=== PATIENT | female | born 1955 | race Caucasian/White ===

== ENCOUNTER 2022-03-02 15:19 | Observation (INO) | payer MEDICARE, SELFPAY ==
--- NOTE | 2022-03-02 15:15 | CT_ITS ---
FINAL REPORT CLINICAL HISTORY: lisfranc fracture??, fall off back deck FINDINGS: Axial images of the right foot was performed by computed tomography. Sagittal and coronal reformatted images were obtained and reviewed. This study was performed with techniques to keep radiation doses as low as reasonably achievable (ALARA). Individualized dose reduction techniques using automated exposure control or adjustment of mA and/or kV according to the patient's size were employed. Mild degenerative changes are present. There is a transverse fracture at the base of the 5th metatarsal with mild distraction. There is irregularity along the medial talus of uncertain age, favor chronic. There is a small calcification dorsal to the proximal 5th metatarsal of uncertain etiology. Midfoot and forefoot soft tissue edema is identified. IMPRESSION: Transverse fracture at the base of the 5th metatarsal. Small calcification dorsal to the proximal 5th metatarsal of uncertain etiology. Reviewed, Interpreted and Dictated by Garry Gamez III, MD Transcribed by Kylie Burnette Authenticated and [facility]
--- NOTE | 2022-03-02 15:15 | CT_ITS ---
FINAL REPORT CLINICAL HISTORY: lisfranc fracture??, fall off back deck FINDINGS: CT LEFT FOOT WITHOUT CONTRAST Technique: Axial images through the left foot were performed by computed tomography. Sagittal and coronal reconstruction images were performed. This study was performed with techniques to keep radiation doses as low as reasonably achievable (ALARA). Individualized dose reduction techniques using automated exposure control or adjustment of mA and/or kV according to the patient's size were employed. There is a small avulsion fracture of the proximal plantar aspect of the 1st metatarsal. There is a 2nd fracture involving the proximal lateral 1st metatarsal. There is a small fracture of the dorsal aspect of the middle cuneiform. There is a comminuted fracture of the lateral cuneiform with fracture lines extending to the tarsometatarsal joint. There is a fracture of the proximal medial 4th metatarsal. There are chronic calcifications inferior to the medial navicular of uncertain etiology. There is midfoot and forefoot soft tissue edema. IMPRESSION: Multiple midfoot fractures as described. Reviewed, Interpreted and Dictated by Garry Gamez III, MD Transcribed by Kg Tamayo Authenticated and [facility]
--- NOTE | 2022-03-02 15:54 | PC.NURSE ---
Pt arrived to the floor at this time
[2022-03-02 15:55] VITALS: BP 157/88; PULSE 71; RESP 16; TEMP 36.9; O2SAT 93; BMI 38.3
[2022-03-02 16:46] LABS: Basophils # 0.1 K/mm3 (0-0.2); Basophils % 0.9 % (0.1-2.0); Eosinophils # 0.3 K/mm3 (0.0-0.4); Hematocrit 36.9 % (37.0-47.0); Hemoglobin 12.1 g/dL (12.2-16.2); Lymphocytes # 1.7 K/mm3 (0.7-4.5); Lymphocytes % 20.5 % (10-50); Mean Corpuscular HGB Conc 32.7 g/dL (31.8-35.4); Mean Corpuscular Hemoglobin 30.3 pg (27.0-31.2); Mean Corpuscular Volume 92.5 fl (81-99); Mean Platelet Volume 8.6 fl (7.4-10.4); Monocytes # 0.8 K/mm3 (0.1-1.0); Monocytes % 9.8 % (1.7-9.3); Neutrophils # 5.6 K/mm3 (1.8-7.8); Neutrophils % 65.9 % (37.0-80.0); Platelet Count 304 K/mm3 (142-424); Red Blood Count 3.99 M/mm3 (4.20-5.40); White Blood Count 8.5 K/mm3 (4.8-10.8)
[2022-03-02 16:52] LABS: Alanine Aminotransferase 91 U/L (12-78); Albumin Level 3.8 g/dl (3.5-5.0); Albumin/Globulin Ratio 1.2 (1.1-1.8); Alkaline Phosphatase 236 U/L (38-126); Anion Gap 10.4 mEq/L (5-15); Aspartate Amino Transferase 121 U/L (14-36); Bilirubin,Total 0.6 mg/dl (0.2-1.3); Blood Urea Nitrogen 20 mg/dl (7-17); Calcium 9.2 mg/dl (8.4-10.2); Carbon Dioxide 30 mmol/L (22.0-30.0); Chloride 102 mmol/L (98-107); Creatinine Clearance Estimated 75 mL/min (50-200); Estimated Glomerular Filt Rate 45 ml/min (>60); GFR (African American) 54 ML/MIN (>60); Globulin 3.2 g/dL (1.3-3.2); Glucose 123 mg/dl (74-100); Magnesium 1.8 mg/dl (1.6-2.3); Potassium 3.4 mmoL/L (3.5-5.1); Sodium 139 mmol/L (136-145)
[2022-03-02 19:53] VITALS: BP 119/53; PULSE 67; RESP 18; TEMP 36.9; O2SAT 96
--- NOTE | 2022-03-02 21:18 | HMH.HP ---
*Admission Date: 03/02/22 *Chief complaint: bilateral foot pain, fall *History of present illness: Ms. Fountain is a pleasant 67-year-old female who presents to the office today for follow-up from recent ER visit at [facility]. States on Sunday she was stepping off of her porch when she missed the last step. She stumbled, fell hard on her feet, right knee, and scratched her face. Immediately had onset of pain in her feet and felt a pop in the right foot in particular. EMS took her to the emergency room where she was worked up for injury to her feet. Imaging was obtained that at that time she was told showed concern for Lisfranc injury but no fractures. She was sent home with pain medication and no follow-up plan. She has had a significant difficulty walking since being home. Both feet have become more swollen, bruising on the bottoms of both feet. Right foot and ankle swollen. Having to walk on heels to ambulate to the bathroom. Significant dependence on her friend for ADLs. On exam today in the office, she was sent to [facility] again for repeat imaging given the tenderness on exam and swelling in her feet. Radiology called our office informing us that she had a fracture of her right fifth metatarsal. After consulting orthopedics as an outpatient, decision made to admit patient for further imaging, evaluation, and possible surgical intervention. Patient denies any other complaints. No upset stomach, nausea, vomiting, diarrhea, confusion, headache, chest pain or shortness of breath. Tramadol and adequately controlling her pain at home. Only on aspirin, instructed to hold at this time. No other blood thinners. [facility] History I have reviewed the patient's past medical history: Yes Medical History: Reports:: Cancer (skin cancer on nose), Hyperlipidemia Denies:: Diabetes Mellitus Type 1, Diabetes Mellitus Type 2, MRSA *Have you ever received a pneumonia vaccine?: Yes (2020 Prev) *Have you received a flu vaccine this season?: Yes Other Medical History: Reports: Arthritis, Cataracts (Recently had both cataracts removed), Sinus Problems (seasonal allergies) Laterality Cases: Right: Total Hip Replacement, Bilateral: Cataract, Total Knee Replacement Other Surgeries: Yes: Cholecystectomy, Colonoscopy, Colostomy (2013), 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) Amputation: No Fractures: Yes (Both feet currently,) - *Social History Last grade of school completed: Some college Smoking Status: Former smoker Alcohol Intake: current Alcohol Intake Frequency:: a few times a month *Occupational Status:: retired Housing: house Household Members: significant other *Travel in the last 8 weeks: None Family Hx:: Coronary Artery Disease, Hyperlipidemia Review of Systems - Review of Systems Review of systems:: pertinent systems reviewed and negative unless documented below (14 point review of systems performed, pertinent positives and negatives as per HPI) Meds Home Medications Medication Instructions Recorded Confirmed Type Fluoxetine HCl 80 mg PO DAILY 03/02/22 03/02/22 History Montelukast Sodium 10 mg PO HS 03/02/22 03/02/22 History Ofloxacin [Ocuflox 0.3% OPHTH 1 drp OP HS 03/02/22 03/02/22 History drops 5mL] [place]-3 Acid Ethyl Esters 2 gm PO BID 03/02/22 03/02/22 History Oxycodone HCl/Acetaminophen 1 each PO Q6 PRN 03/02/22 03/02/22 History [Oxycodone-Acetaminophen 5-325] Simvastatin 40 mg PO DAILY 03/02/22 03/02/22 History Tramadol HCl [Tramadol 50mg 50 mg PO BID PRN 03/02/22 03/02/22 History Tab] Triamterene/Hydrochlorothiazid 1 each PO AM 03/02/22 03/02/22 History [Triamterene-Hctz 37.5-25 mg Tb] Verapamil HCl [Verapamil ER] 180 mg PO AM 03/02/22 03/02/22 History allopurinoL [Allopurinol 300mg 150 mg PO AM 03/02/22 03/02/22 History tablet] hydrOXYzine HCL [Hydroxyzine HCl] 25 - 50 mg PO HS PRN 03/02/22 03/02/22 History Allergies Allergy/AdvReac Type Severity Reaction Status Date / Time dapto
[2022-03-03 04:00] VITALS: BP 113/54; PULSE 64; RESP 17; TEMP 36.4; O2SAT 96
[2022-03-03 05:00] VITALS: BMI 38.3
--- NOTE | 2022-03-03 05:26 | PC.NURSE ---
PT HAS RESTED WELL THIS SHIFT. LUNG SOUNDS CLEAR, REMAINS ON ROOM AIR AND IS TOLERATING WELL. BOWEL SOUNDS ACTIVE IN ALL 4 QUADS. NO C/O OF N/V/D. NO C/O PAIN UNTIL THIS AM WHEN SHE GOT UP TO THE [facility] BUT STATED SHE DID NOT WANT ANYTHING FOR PAIN AT THIS TIME. NPO FOR ORTHO CONSULT THIS AM. BILATERAL FEET REMAIN SWOLLEN, NON-PITTING +2 AND FEET ARE STILL BRUISED. NO FURTHER COMPLAINTS OR CONCERNS AT THIS TIME.
[2022-03-03 06:24] LABS: MANUAL DIFFERENTIAL MANUAL DIFFERENTIAL (MANUAL DIFF)
[2022-03-03 06:40] LABS: Basophils # 0.1 K/mm3 (0-0.2); Basophils % 1.2 % (0.1-2.0); Chloride 103 mmol/L (98-107); Eosinophils # 0.3 K/mm3 (0.0-0.4); Eosinophils % 4.7 % (0.1-12.0); Hematocrit 37.4 % (37.0-47.0); Hemoglobin 11.7 g/dL (12.2-16.2); Lymphocytes # 1.9 K/mm3 (0.7-4.5); Lymphocytes % 28.7 % (10-50); Mean Corpuscular HGB Conc 31.3 g/dL (31.8-35.4); Mean Corpuscular Hemoglobin 29.3 pg (27.0-31.2); Mean Corpuscular Volume 93.7 fl (81-99); Mean Platelet Volume 8.7 fl (7.4-10.4); Monocytes # 0.7 K/mm3 (0.1-1.0); Monocytes % 10.2 % (1.7-9.3); Neutrophils # 3.6 K/mm3 (1.8-7.8); Neutrophils % 55.2 % (37.0-80.0); Platelet Count 252 K/mm3 (142-424); Red Blood Count 3.99 M/mm3 (4.20-5.40); Red Cell Distribution Width 14.1 % (11.5-17.5); White Blood Count 6.5 K/mm3 (4.8-10.8)
[2022-03-03 06:41] LABS: Potassium 4.2 mmoL/L (3.5-5.1); Sodium 139 mmol/L (136-145)
[2022-03-03 06:43] LABS: Alanine Aminotransferase 69 U/L (12-78); Alkaline Phosphatase 180 U/L (38-126); Anion Gap 9.2 mEq/L (5-15); Aspartate Amino Transferase 78 U/L (14-36); Bilirubin,Total 0.5 mg/dl (0.2-1.3); Blood Urea Nitrogen 28 mg/dl (7-17); Carbon Dioxide 31 mmol/L (22.0-30.0); Creatinine Clearance Estimated 82 mL/min (50-200); Estimated Glomerular Filt Rate 49 ml/min (>60); GFR (African American) 60 ML/MIN (>60)
[2022-03-03 06:44] LABS: Albumin Level 3.8 g/dl (3.5-5.0); Albumin/Globulin Ratio 1.2 (1.1-1.8); Calcium 9.3 mg/dl (8.4-10.2); Globulin 3.1 g/dL (1.3-3.2); Glucose 111 mg/dl (74-100); Total Protein,Serum 6.9 g/dl (6.3-8.2)
--- NOTE | 2022-03-03 07:33 | HMH.ACPN2 ---
Internal Medicine - PN: Subj *Date: 03/03/22 *Time: 08:27 Interval history: Did well overnight. Pain Management current regimen. [place] for the first time in a few nights. Denies any chest pain, shortness of breath, nausea or vomiting. Using bedside commode with assistance, bearing weight on heels. Exam Vital signs and Labs for Last 24 Hours: Temp Pulse Resp BP Pulse Ox 97.5 F L 64 17 113/54 L 96 03/03/22 04:00 03/03/22 04:00 03/03/22 04:00 03/03/22 04:00 03/03/22 04:00 Laboratory Results - last 24 hr 03/02/22 16:20: WBC 8.5, RBC 3.99 L, Hgb 12.1 L, Hct 36.9 L, MCV 92.5, MCH 30.3, MCHC 32.7, RDW 14.0, Plt Count 304, MPV 8.6, Neut % (Auto) 65.9, Lymph % (Auto) 20.5, [place] % (Auto) 9.8 H, Eos % (Auto) 3.0, Baso % (Auto) 0.9, Neut # (Auto) 5.6, Lymph # (Auto) 1.7, [place] # (Auto) 0.8, Eos # (Auto) 0.3, Baso # (Auto) 0.1 03/02/22 16:20: Sodium 139, Potassium 3.4 L, Chloride 102, Carbon Dioxide 30, Anion Gap 10.4, BUN 20 H, Creatinine 1.20 H, Estimated Creat Clear 75, Estimated GFR 45 L, Est GFR ( Amer) 54 L, Glucose 123 H, Calcium 9.2, Magnesium 1.8, Total Bilirubin 0.6, AST 121 H, ALT 91 H, Alkaline Phosphatase 236 H, Total Protein 7.0, Albumin 3.8, Globulin 3.2, Albumin/Globulin Ratio 1.2 03/03/22 05:50: WBC 6.5, RBC 3.99 L, Hgb 11.7 L, Hct 37.4, MCV 93.7, MCH 29.3, MCHC 31.3 L, RDW 14.1, Plt Count 252, MPV 8.7, Neut % (Auto) 55.2, Lymph % (Auto) 28.7, [place] % (Auto) 10.2 H, Eos % (Auto) 4.7, Baso % (Auto) 1.2, Neut # (Auto) 3.6, Lymph # (Auto) 1.9, [place] # (Auto) 0.7, Eos # (Auto) 0.3, Baso # (Auto) 0.1 03/03/22 05:50: Sodium 139, Potassium 4.2 D, Chloride 103, Carbon Dioxide 31 H, Anion Gap 9.2, BUN 28 H D, Creatinine 1.10 H, Estimated Creat Clear 82, Estimated GFR 49 L, Est GFR ( Amer) 60, Glucose 111 H, Calcium 9.3, Magnesium 2.0 D, Total Bilirubin 0.5, AST 78 H D, ALT 69, Alkaline Phosphatase 180 H, Total Protein 6.9, Albumin 3.8, Globulin 3.1, Albumin/Globulin Ratio 1.2 I & O for Last 24 hours: Intake & Output 02/28/22 03/01/22 03/02/22 03/03/22 23:59 23:59 23:59 23:59 Intake Total 360 / 360 Output Total 500 / 500 Balance 360 / 360 -500 / -500 Weight 106.169 kg 105.715 kg Microbiology Reports for the Last 24 Hours: Microbiology 03/02/22 16:20 Nasopharyngeal Coronavirus COVID-19 PCR - Final Narrative: - Constitutional no acute distress, obese - *Routine HEENT Exam Head: Present: normocephalic Eye: Present: EOMI, PERRL ENT: Present: mucous membranes moist - *Routine Neck Exam Present: supple. Absent: lymphadenopathy - *Routine Respiratory Exam Present: CTA bilaterally - *Routine Cardiovascular Exam Present: RRR - *Routine Abdominal Exam Present: soft, normoactive bowel sounds. Absent: tenderness - *Routine Extremities Exam Present: edema (in feet, right > left). NO cyanosis, clubbing; interval improvement in foot edema with elevation. Bilateral foot pain. bruising on plantar surfaces bilaterally. Right ankle and lateral foot exquisitely tender with minimal palpation. left foot TTP through mid foot. - *Routine Skin Exam Present: warm. No rash, abrasion of right knee - *Routine Neurological Exam Present: alert, oriented X3 Assessment and Plan (1) Fracture of 5th metatarsal Status: Acute Qualifiers: Fracture type: closed Category: Medical Code(s): S92.353A - Displaced fracture of fifth metatarsal bone, unspecified foot, initial encounter for closed fracture (2) Class 2 obesity Status: Chronic Category: Medical Code(s): E66.9 - Obesity, unspecified (3) Foot fracture, left Status: Acute Qualifiers: Fracture type: closed Category: Medical Code(s): S92.902A - Unspecified fracture of left foot, initial encounter for closed fracture (4) Essential hypertension Status: Chronic Category: Medical Code(s): I10 - Essential (primary) hypertension (5) Depression Status: Chronic Category: Medical Code(s)
[2022-03-03 07:34] LABS: Lymphocytes % 25 % (10-50); Monocytes % 7 % (2-9); Neutrophils % 68 % (42-76); Platelet Estimate Normal; RBC Morphology Normal; Total Cells Counted 100
--- NOTE | 2022-03-03 07:38 | P.CONPHA_ITS ---
[facility] Pharmacy VTE Monitoring - Patient Demographics Admission date: 03/03/22 Report Date: 03/03/22 Time: 07:38 Allergies/Adverse Reactions: Patient Allergies daptomycin Allergy (Verified 03/02/22 16:02) Height: 1.66 m Weight: 105.715 kg Patient Problems: Current Active Problems Class 2 obesity (Chronic) Fracture of 5th metatarsal (Acute) Foot fracture, left (Acute) Essential hypertension (Chronic) Depression (Chronic) IgA nephropathy (Chronic) CKD (chronic kidney disease) (Chronic) - VTE Risk Labs: VTE Related Lab Results Hgb 11.7 g/dL (12.2-16.2) L 03/03/22 05:50 Hct 37.4 % (37.0-47.0) 03/03/22 05:50 Plt Count 252 K/mm3 (142-424) 03/03/22 05:50 BUN 28 mg/dl (7-17) H D 03/03/22 05:50 Creatinine 1.10 mg/dl (0.52-1.04) H 03/03/22 05:50 Estimated Creat Clear 82 mL/min (50-200) 03/03/22 05:50 Was VTE Risk Assessment Performed: Yes VTE Score: 6 VTE Risk Level: Moderate Risk Clinical Trial Participant: No - Prophylaxis VTE Prophylaxis Ordered?: Yes Types of VTE Prophylaxis: TEDS Knee High, Pharmacological Pharmacologic Type: Enoxaparin
[2022-03-03 08:00] VITALS: BP 124/75; PULSE 67; RESP 16; TEMP 36.8; O2SAT 96
--- NOTE | 2022-03-03 11:14 | MR_ITS ---
FINAL REPORT CLINICAL HISTORY: FALL RIGHT FOOT PAIN COMPARISON: CT from the previous day FINDINGS: Multiplanar MR imaging of the right foot was performed without contrast. There is a transverse fracture through the base of the 5th metatarsal without significant bone marrow edema that may be subacute. There is a nondisplaced fracture of the distal talus with mild bone marrow edema. There are mild degenerative changes. There is posterior tibial and peroneus longus tenosynovitis. No ligamentous injury is identified, specifically the Lisfranc ligament is intact. The musculature is intact. The plantar aponeurosis is intact. There is forefoot soft tissue edema. IMPRESSION: Fracture through the base of the 5th metatarsal may be subacute. Nondisplaced fracture of the distal talus with mild bone marrow edema. Mild degenerative change. Intact Lisfranc ligament. Posterior tibial and peroneus longus tenosynovitis. Reviewed, Interpreted and Dictated by Garry Gamez III, MD Transcribed by Kg Tamayo Authenticated and [facility]
--- NOTE | 2022-03-03 11:15 | MR_ITS ---
FINAL REPORT CLINICAL HISTORY: FALL FROM PORCH. BILATERAL FX'S. COMPARISON: CT from the previous day FINDINGS: Multiplanar MR imaging of the left foot was performed without contrast. There are mild degenerative changes. There are areas of mild bone marrow edema in the midfoot. The fractures seen on the recent CT are not well demonstrated. There appears to be a fracture of the lateral cuneiform. The flexor and extensor tendons are intact. There is thinning of the Lisfranc ligament with adjacent fluid on series 4, image 21 felt to represent a partial tear. There is widespread forefoot and midfoot soft tissue edema or hemorrhage. The musculature is intact. There is posterior plantar fasciitis. There are tibiotalar and subtalar joint effusions. IMPRESSION: Thinning of the Lisfranc ligament with adjacent fluid felt to represent partial tear. Fractures on prior CT not well demonstrated. There appears to be a fracture of the lateral cuneiform. Posterior plantar fasciitis. Widespread forefoot and midfoot soft tissue edema or hemorrhage. Tibiotalar and subtalar joint effusions. Reviewed, Interpreted and Dictated by Garry Gamez III, MD Transcribed by Kg Tamayo Authenticated and [facility]
--- NOTE | 2022-03-03 11:21 | CARE MANAGER ---
Addendum entered by Krystina Zhou 03/07/22 07:38: COVID swab is not needed prior to discharge per Rigoberto jensen/ [place]. Addendum entered by Krystina Zhou 03/06/22 14:54: Per Rigoberto this patient can be admitted to [facility] level of care tomorrow. Patient will require a COVID swab prior to discharge. Addendum entered by Krystina Zhou 03/06/22 08:30: Updated patient information has been faxed to Rigoberto. Addendum entered by Osiris Peralta RN 03/03/22 16:12: Rigoberto flores will start precert on Sunday Original Note: Patient will need rehab after surgery and prefers [facility]. Information sent to Rigoberto there. SINGH Fernandez
[2022-03-03 11:33] VITALS: BMI 38.1
--- NOTE | 2022-03-03 14:31 | PC.NURSE ---
rounded on patient. no questions or concerns. patient sitting up in chair finishing lunch. requested something sweet so ice cream and cookie obtained. wishes for a shower once daughter brings her shampoo. will need a shower chair. no complaints noted. encouraged her to ring out with any other needs or questions.
[2022-03-03 16:00] VITALS: BP 107/50; PULSE 61; RESP 18; TEMP 36.5; O2SAT 93
--- NOTE | 2022-03-03 18:19 | PC.NURSE ---
Possible surgery tomorrow per case management but no note in from Dr. Ryan. Pt NPO tomorrow for possible surgery. VS stable and pain medicine given twice for foot pain. MRI completed. Patient remained on room air with no other complaints. Elevated feet while patient able to tolerate pivoting to chair and bedside commode.
[2022-03-03 20:00] VITALS: BP 112/59; PULSE 61; RESP 18; TEMP 37; O2SAT 94
[2022-03-04] VITALS (19 sets, daily range): BP systolic 108–136; BP diastolic 42–75; PULSE 63–76; RESP 14–18; TEMP 36.6–37.3; O2SAT 90–97; BMI 38.3
--- NOTE | 2022-03-04 04:50 | PC.NURSE ---
PT IS ALERT AND ORIENTED X4. LUNG SOUNDS ARE CLEAR. REMAINS ON ROOM AIR AND IS TOLERATING WELL. HAS RESTED WELL THIS SHIFT. C/O PAIN IN BILATERAL FEET AFTER SHOWER AT THE BEGINNING OF SHIFT AND WAS MEDICATED PER MAR FOR PAIN. NO C/O N/V/D. VSS. STATES THAT SHE IS FEELING BETTER AND HER FEET ARE NOT HURTING BAD AND THEY FEEL MORE LIKE ANKLE SPRAINS. NO OTHER COMPLAINTS OR CONCERNS AT THIS TIME.
[2022-03-04 07:22] LABS: Basophils # 0.1 K/mm3 (0-0.2); Basophils % 1.9 % (0.1-2.0); Eosinophils # 0.4 K/mm3 (0.0-0.4); Eosinophils % 7.4 % (0.1-12.0); Hemoglobin 14.7 g/dL (12.2-16.2); Lymphocytes # 1.5 K/mm3 (0.7-4.5); Lymphocytes % 29.3 % (10-50); Mean Corpuscular Hemoglobin 29.4 pg (27.0-31.2); Mean Platelet Volume 8.9 fl (7.4-10.4); Monocytes # 0.5 K/mm3 (0.1-1.0); Monocytes % 9.1 % (1.7-9.3); Neutrophils # 2.7 K/mm3 (1.8-7.8); Neutrophils % 52.3 % (37.0-80.0); Platelet Count 204 K/mm3 (142-424); White Blood Count 5.2 K/mm3 (4.8-10.8)
[2022-03-04 07:55] LABS: Chloride 105 mmol/L (98-107); Sodium 137 mmol/L (136-145)
[2022-03-04 07:56] LABS: Potassium 4.4 mmoL/L (3.5-5.1)
[2022-03-04 07:58] LABS: Alanine Aminotransferase 57 U/L (12-78); Alkaline Phosphatase 178 U/L (38-126); Anion Gap 8.4 mEq/L (5-15); Aspartate Amino Transferase 61 U/L (14-36); Bilirubin,Total 0.4 mg/dl (0.2-1.3); Blood Urea Nitrogen 32 mg/dl (7-17); Carbon Dioxide 28 mmol/L (22.0-30.0); Creatinine Clearance Estimated 82 mL/min (50-200); Estimated Glomerular Filt Rate 49 ml/min (>60); GFR (African American) 60 ML/MIN (>60)
[2022-03-04 07:59] LABS: Albumin Level 3.4 g/dl (3.5-5.0); Albumin/Globulin Ratio 1.2 (1.1-1.8); Calcium 8.2 mg/dl (8.4-10.2); Globulin 2.9 g/dL (1.3-3.2); Glucose 91 mg/dl (74-100); Total Protein,Serum 6.3 g/dl (6.3-8.2)
--- NOTE | 2022-03-04 08:53 | PC.NURSE ---
courtesy Tech; checked on pt, no requests at this time.
--- NOTE | 2022-03-04 09:07 | P.PN_ITS ---
Internal Medicine - PN: Subj *Date: 03/04/22 *Time: 09:07 Interval history: Patient is pleasant. Talkative. No distress. Lots of questions about possible rehabilitation issues. Exam Vital signs and Labs for Last 24 Hours: Temp Pulse Resp BP Pulse Ox 98.1 F 65 14 119/75 97 03/04/22 07:42 03/04/22 07:42 03/04/22 07:42 03/04/22 07:42 03/04/22 07:42 Laboratory Results - last 24 hr 03/04/22 06:53: WBC 5.2, RBC 5.00 D, Hgb 14.7, Hct 46.0, MCV 92.0, MCH 29.4, MCHC 32.0, RDW 14.0, Plt Count 204, MPV 8.9, Neut % (Auto) 52.3, Lymph % (Auto) 29.3, [place] % (Auto) 9.1, Eos % (Auto) 7.4, Baso % (Auto) 1.9, Neut # (Auto) 2.7, Lymph # (Auto) 1.5, [place] # (Auto) 0.5, Eos # (Auto) 0.4, Baso # (Auto) 0.1 03/04/22 06:53: Sodium 137, Potassium 4.4, Chloride 105, Carbon Dioxide 28, Anion Gap 8.4, BUN 32 H, Creatinine 1.10 H, Estimated Creat Clear 82, Estimated GFR 49 L, Est GFR ( Amer) 60, Glucose 91, Calcium 8.2 L, Magnesium 2.0, Total Bilirubin 0.4, AST 61 H, ALT 57, Alkaline Phosphatase 178 H, Total Protein 6.3, Albumin 3.4 L D, Globulin 2.9, Albumin/Globulin Ratio 1.2 I & O for Last 24 hours: Intake & Output 03/01/22 03/02/22 03/03/22 03/04/22 11:59 11:59 11:59 11:59 Intake Total 360 / 360 360 / 360 Output Total 500 / 500 Balance -140 / -140 360 / 360 Weight 231 lb 7.766 oz 233 lb 2 oz Narrative: Alert, oriented. Cardiopulmonary assessment unremarkable, abdomen soft. No rash. Feet have structural changes as noted by orthopedic exam. Lots of pain with movement. Assessment and Plan (1) Fracture of 5th metatarsal Status: Acute Qualifiers: Fracture type: closed Category: Medical Code(s): S92.353A - Displaced fracture of fifth metatarsal bone, unspecified foot, initial encounter for closed fracture (2) Class 2 obesity Status: Chronic Category: Medical Code(s): E66.9 - Obesity, unspecified (3) Foot fracture, left Status: Acute Qualifiers: Fracture type: closed Category: Medical Code(s): S92.902A - Unspecified fracture of left foot, initial encounter for closed fracture (4) Essential hypertension Status: Chronic Category: Medical Code(s): I10 - Essential (primary) hypertension (5) Depression Status: Chronic Category: Medical Code(s): F32.A - Depression, unspecified (6) IgA nephropathy Status: Chronic Category: Medical Code(s): N02.8 - Recurrent and persistent hematuria with other morphologic changes (7) CKD (chronic kidney disease) Status: Chronic Qualifiers: Chronic kidney disease stage: stage 3 (moderate) Chronic kidney disease stage 3 subtype: stage 3a (GFR 45-59) Qualified Code(s): N18.31 - Chronic kidney disease, stage 3a Category: Medical Code(s): N18.9 - Chronic kidney disease, unspecified - Assessment and plan all Dx Assessment and Plan for all problems:: Plan for operative intervention today. Arrangements for skilled care rehab will be pending.
--- NOTE | 2022-03-04 11:09 | HMH.ORTHOCON ---
*Admission Date: 03/03/22 *Reason for consult:: bilateral foot fractures *History of present illness: 67-year-old female fell down a couple of steps on her porch. She complains of bilateral foot pain, was seen at [facility] emergency department, was discharged with an Gary wrap. She had intractable pain the next day, tried to get the ambulance to come take her back to the hospital but they apparently refused per her report. She was seen at her primary care physician's office that day. He called me, we discussed and she was directly admitted to [facility]. She has been nonweightbearing since that time. She is a community ambulator without assistive devices at baseline, quite active. 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) Amputation: No Fractures: Yes (Both feet currently,) - *Social History Last grade of school completed: Some college Smoking Status: Former smoker Alcohol Intake: current Alcohol Intake Frequency:: a few times a month *Occupational Status:: retired Housing: house Household Members: significant other *Travel in the last 8 weeks: None Family Hx:: Coronary Artery Disease, Hyperlipidemia Review of Systems - Eyes Denies change in vision - *Cardiovascular Denies chest pain - *Respiratory Denies shortness of breath - *Gastrointestinal Denies abdominal pain - *Genitourinary Denies difficulty urinating - *Musculoskeletal Reports joint pain, Reports joint swelling - *Neurologic Denies behavioral changes Meds Home Medications Medication Instructions Recorded Confirmed Type Fluoxetine HCl 80 mg PO DAILY 03/02/22 03/02/22 History Montelukast Sodium 10 mg PO HS 03/02/22 03/02/22 History [place]-3 Acid Ethyl Esters 2 gm PO BID 03/02/22 03/02/22 History Oxycodone HCl/Acetaminophen 1 each PO Q6HP PRN 03/02/22 03/03/22 History [Oxycodone-Acetaminophen 5-325] Simvastatin 40 mg PO DAILY 03/02/22 03/02/22 History Tramadol HCl [Tramadol 50mg 50 mg PO TIDP PRN 03/02/22 03/03/22 History Tab] Triamterene/Hydrochlorothiazid 1 each PO DAILY 03/02/22 03/03/22 History [Triamterene-Hctz 37.5-25 mg Tb] Verapamil HCl [Verapamil ER] 180 mg PO AM 03/02/22 03/02/22 History allopurinoL [Allopurinol 300mg 150 mg PO DAILY 03/02/22 03/03/22 History tablet] hydrOXYzine HCL [Hydroxyzine HCl] 25 - 50 mg PO HSP PRN 03/02/22 03/03/22 History Allergies Allergy/AdvReac Type Severity Reaction Status Date / Time daptomycin Allergy Verified 03/02/22 16:02 Exam Vital signs and Labs for Last 24 Hours: Temp Pulse Resp BP Pulse Ox 98.1 F 65 14 119/75 97 03/04/22 07:42 03/04/22 07:42 03/04/22 07:42 03/04/22 07:42 03/04/22 07:42 Laboratory Results - last 24 hr 03/04/22 06:53: WBC 5.2, RBC 5.00 D, Hgb 14.7, Hct 46.0, MCV 92.0, MCH 29.4, MCHC 32.0, RDW 14.0, Plt Count 204, MPV 8.9, Neut % (Auto) 52.3, Lymph % (Auto) 29.3, [place] % (Auto) 9.1, Eos % (Auto) 7.4, Baso % (Auto) 1.9, Neut # (Auto) 2.7, Lymph # (Auto) 1.5, [place] # (Auto) 0.5, Eos # (Auto) 0.4, Baso # (Auto) 0.1 03/04/22 06:53: Sodium 137, Potassium 4.4, Chloride 105, Carbon Dioxide 28, Anion Gap 8.4, BUN 32 H, Creatinine 1.10 H, Estimated Creat Clear 82, Estimated GFR 49 L, Est GFR ( Amer) 60, Glucose 91, Calcium 8.2 L, Magnesium 2.0, Total Bilirubin 0.4, AST 61 H, ALT 57, Alkaline Phosphatase 178 H, Total Protein 6.3, Albumin 3.
--- NOTE | 2022-03-04 11:14 | HMH.ANESCL ---
[facility] Anesthesia Checklist - Patient Identification Patient Identification: Arm Band, Verbal (Name & ) - Structural Data Admitted From: Inpatient Planned Operative Procedure/s: Left Ankle ORIF Consent for Planned Operative Procedure(s) Verified: Yes Verified Documents: Surgical Consent - NPO Status Verified Time NPO: 00:00 - Chart Verification Results Verified: CBC - Airway Assessment C-Spine Mobility Assessed: Yes TMJ Mobility Assessed: Yes Dentition: Good Dentition - Neurological Assessment Level of Consciousness: Awake, Alert, Appropriate - Anesthesia Plan Anesthesia Risk discussed: Yes ASA Class: II Anesthesia Type: General [facility] History I have reviewed the patient's past medical history: Yes Medical History: Reports:: Cancer (skin cancer on nose), Hyperlipidemia Denies:: Diabetes Mellitus Type 1, Diabetes Mellitus Type 2, MRSA *Have you ever received a pneumonia vaccine?: Yes (2020) *Have you received a flu vaccine this season?: Yes Other Medical History: Reports: Arthritis, Cataracts (Recently had both cataracts removed), Sinus Problems (seasonal allergies) Anesthesia experience/problems:: None Laterality Cases: Right: Total Hip Replacement, Bilateral: Cataract, Total Knee Replacement Other Surgeries: Yes: Cholecystectomy, Colonoscopy, Colostomy (2013), Skin Cancer Excision (roving technician removed skin cancer on ose) Amputation: No Fractures: Yes (Both feet currently,) - *Social History Last grade of school completed: Some college Smoking Status: Former smoker Alcohol Intake: current Alcohol Intake Frequency:: a few times a month Substance Use Type: denies use *Occupational Status:: retired Housing: house Household Members: significant other *Travel in the last 8 weeks: None Family Hx:: Coronary Artery Disease, Hyperlipidemia
--- NOTE | 2022-03-04 13:25 | FL_ITS ---
PROCEDURE INFORMATION: Exam: FL Fluoroscopy, Up to 1 Hour Physician Time; Radiologist Not Present For Fluoroscopy Exam date and time: 03/04/2022 1:15 PM Age: 67 years old Clinical indication: Injury or trauma; Fall; Injury: Left foot orif surgical case; Additional info: Fluoro case in or TECHNIQUE: Imaging protocol: Fluoroscopy , up to 1 hour physician or other qualified health wild animal caretaker time. This radiologist did not supervise this procedure. Exam supervised by facility personnel. Report for radiation dosage reporting and documentation only. COMPARISON: No relevant prior studies available. FINDINGS: Nine fluoroscopic spot films of the foot are obtained. These images reveal fixation plates and corticomedullary screws approximating the 1st, 2nd, and 3rd metatarsals with the medial, middle and lateral cuneiforms. IMPRESSION: Fluoroscopy dosage documentation. See also separate procedure notes.
--- NOTE | 2022-03-04 13:41 | HMH.OPNOTE ---
Date of procedure: 03/04/22 Pre-op Diagnosis:: Left Lisfranc fracture Post-op Diagnosis:: Same Procedure performed:: 32789: Open treatment of tarsometatarsal joint dislocation including internal fixation, first TMT via medial incision 48235: Midtarsal arthrodesis, single joint, first TMT via medial incision 18043-26: Open treatment tarsometatarsal joint dislocation with internal fixation, second tarsometatarsal joint via lateral incision 39929-73: Open treatment tarsometatarsal joint dislocation with internal fixation, third tarsometatarsal joint via lateral incision 30747: Midtarsal arthrodesis, multiple/transverse, second and third tarsometatarsal joint via lateral incision C1762: V92 allograft Surgeon:: Germán Ryan JR, MD Anesthesia: GETA Estimated blood loss (mL): 5 Clinical Note:: 67-year-old female fell on her deck, complained of bilateral foot pain. She was initially seen in an outside emergency department, was discharged, could not walk the next day and was subsequently admitted directly from her primary care physicians office with concern for midfoot fractures. Subsequent CT and MRI demonstrated Lisfranc complex fracture of the left foot, minimally displaced fifth metatarsal base fracture. I had a discussion with her regarding both of these injuries. We discussed nonoperative and operative treatment of both. I counseled her that the distalmost aspect of the right fifth metatarsal base fracture segment into the watershed area and it could potentially lead to nonunion to treated nonoperatively. She had minimal pain on the right side but significant pain on the left. She had subtle tarsometatarsal subluxation with associated fractures on her CT/MRI. I counseled her that her left foot injury had higher likelihood of displacing leading to posttraumatic arthritis and subsequent need for late arthrodesis. I discussed with her open reduction internal fixation with planned hardware removal versus acute arthrodesis. I counseled her that acute arthrodesis has been shown to have fewer need for revision surgery compared to open reduction internal fixation alone. After discussion of risk, benefits, alternatives of all options, she wished to treat the right foot nonoperatively, wished to proceed with surgery on the left, open reduction acute arthrodesis of her first through third tarsometatarsal joints. We discussed the risk and benefits of surgery. Risks included but were not limited to pain, bleeding, infection, damage to adjacent structures, need for further surgery, nonunion, malunion, pseudoarthrosis, wound healing complications, loss of limb, . Patient expressed verbal consent and written consent was obtained for the above procedure. Operative findings:: Unstable 1st-3rd tarsometatarsal joint at the beginning of the procedure, safe intraosseous hardware placement at the end of procedure. Operative note:: Patient was identified in preoperative holding. Operative site was marked in indelible ink. History, physical, consent were reviewed and updated. Patient was surrendered to the anesthesia team, taken to the operative suite, placed supine on a well-padded operative table. Ipsilateral hip bump was placed as was a nonsterile thigh tourniquet. Anesthesia was induced. The operative extremity was prepped and draped in the usual sterile fashion. The operative team donned sterile gowns and gloves and a timeout was called. All in attendance agreed regarding the patient's identity, procedure, operative site. Weight-based dose of antibiotics was given prior to incision. Operative extremity was exsanguinated with an Esmarch bandage and the tourniquet was inflated to 300 mmHg. Performed a stress test of the midfoot, noted instability of the first through third tarsometatarsal joints. I made a medial incision at the level of the first tarsometatarsal joint and a dorsal incision lateral to the third tarsometatarsal joint. I dissected throug
--- NOTE | 2022-03-04 13:43 | HMH.ANESI ---
[facility] Anesthesia Record Part I Intake, IV Amount: 800 Estimated blood loss (mL): 2 Urine output (mL): 0 Blood Pressure: 129/68 SaO2: 93 Pulse Rate: 74 Respiratory Rate: 16 Temperature: 98.0 F Patient is:: Drowsy Stable to PACU at:: 13:38
--- NOTE | 2022-03-04 16:00 | PC.NURSE ---
Patient back from surgery for Left tarsal fusion, VSS, denies pain, polar pack applied, resting with eyes closed. Shows no s/s of acute distress, bed at lowest level for safety, call light within reach; will continue to monitor.
[2022-03-05] VITALS: BP 118/62; PULSE 68; RESP 16; TEMP 37.2; O2SAT 94
[2022-03-05 04:00] VITALS: BP 125/66; PULSE 78; RESP 16; TEMP 36.6; O2SAT 93
[2022-03-05 05:00] VITALS: BMI 38.2
--- NOTE | 2022-03-05 05:41 | HMH.ACPN2 ---
Internal Medicine - PN: Subj *Date: 03/05/22 *Time: 05:41 Interval history: Resting comfortably, no adverse events during day yesterday or overnight. Exam Vital signs and Labs for Last 24 Hours: Temp Pulse Resp BP Pulse Ox 98 F 78 16 125/66 93 L 03/05/22 04:00 03/05/22 04:00 03/05/22 04:00 03/05/22 04:00 03/05/22 04:00 Laboratory Results - last 24 hr 03/04/22 06:53: WBC 5.2, RBC 5.00 D, Hgb 14.7, Hct 46.0, MCV 92.0, MCH 29.4, MCHC 32.0, RDW 14.0, Plt Count 204, MPV 8.9, Neut % (Auto) 52.3, Lymph % (Auto) 29.3, Titus % (Auto) 9.1, Eos % (Auto) 7.4, Baso % (Auto) 1.9, Neut # (Auto) 2.7, Lymph # (Auto) 1.5, Titus # (Auto) 0.5, Eos # (Auto) 0.4, Baso # (Auto) 0.1 03/04/22 06:53: Sodium 137, Potassium 4.4, Chloride 105, Carbon Dioxide 28, Anion Gap 8.4, BUN 32 H, Creatinine 1.10 H, Estimated Creat Clear 82, Estimated GFR 49 L, Est GFR ( Amer) 60, Glucose 91, Calcium 8.2 L, Magnesium 2.0, Total Bilirubin 0.4, AST 61 H, ALT 57, Alkaline Phosphatase 178 H, Total Protein 6.3, Albumin 3.4 L D, Globulin 2.9, Albumin/Globulin Ratio 1.2 I & O for Last 24 hours: Intake & Output 03/02/22 03/03/22 03/04/22 03/05/22 23:59 23:59 23:59 23:59 Intake Total 360 / 360 360 / 360 1040 / 1040 Output Total 500 / 500 Balance 360 / 360 -140 / -140 1040 / 1040 Weight 234 lb 1 oz 231 lb 7.766 oz 233 lb 2 oz 232 lb 6.4 oz - Constitutional no acute distress - *Routine HEENT Exam Head: Present: normocephalic Eye: Present: EOMI, PERRL ENT: Present: mucous membranes moist - *Routine Neck Exam Present: supple. Absent: lymphadenopathy - *Routine Respiratory Exam Present: CTA bilaterally - *Routine Cardiovascular Exam Present: RRR - *Routine Abdominal Exam Present: soft, normoactive bowel sounds. Absent: tenderness - *Routine Extremities Exam Absent: cyanosis, clubbing, edema - *Routine Skin Exam Present: warm. Absent: rash - *Routine Neurological Exam Present: alert, oriented X3 - Detailed Lower Extremity Exam Foot/Toes: Left normal inspection (Left lower extremity splint clean, dry, intact. Toes warm and well-perfused. Grossly intact EHL, FHL.), Right swelling (Persistent swelling right foot, mild tenderness base of the fifth metatarsal. Palpable dorsalis pedis/posterior tibial pulse. Sensation intact to light touch deep peroneal, superficial peroneal, tibial, sural, saphenous nerve distribution. 4/5 motor function intact to extensor hallicus longus, flexor hallicus longus, tibialis anterior, gastroc/soleus, posterior tibialis, foot eversion.) Assessment and Plan (1) Fracture of 5th metatarsal Status: Acute Qualifiers: Fracture type: closed Category: Medical Code(s): S92.353A - Displaced fracture of fifth metatarsal bone, unspecified foot, initial encounter for closed fracture (2) Class 2 obesity Status: Chronic Category: Medical Code(s): E66.9 - Obesity, unspecified (3) Foot fracture, left Status: Acute Qualifiers: Fracture type: closed Category: Medical Code(s): S92.902A - Unspecified fracture of left foot, initial encounter for closed fracture (4) Essential hypertension Status: Chronic Category: Medical Code(s): I10 - Essential (primary) hypertension (5) Depression Status: Chronic Category: Medical Code(s): F32.A - Depression, unspecified (6) IgA nephropathy Status: Chronic Category: Medical Code(s): N02.8 - Recurrent and persistent hematuria with other morphologic changes (7) CKD (chronic kidney disease) Status: Chronic Qualifiers: Chronic kidney disease stage: stage 3 (moderate) Chronic kidney disease stage 3 subtype: stage 3a (GFR 45-59) Qualified Code(s): N18.31 - Chronic kidney disease, stage 3a Category: Medical Code(s): N18.9 - Chronic kidney disease, unspecified - Assessment and plan all Dx Assessment and Plan for all problems:: 67-year-old female status post left foot open reduction, acute arthrodes
--- NOTE | 2022-03-05 06:34 | PC.NURSE ---
Pt alert and oriented x 4. Pt has been on bed rest. Pt has a dressing and splint to LLE, c/d/i. Cap refill < 3, skin certified personal trainer BLE. Pt has c/o of pain once during my shift. Medicated per SEP. Polar pack in place to LLE. Swelling noted to RLE. Voiding per howard w/ adequate urine output. Dr Ryan came to see pt early this AM and put in new orders. Call light in reach. No needs voiced at this time.
[2022-03-05 08:00] VITALS: BP 132/52; PULSE 68; RESP 16; TEMP 36.9; O2SAT 96
--- NOTE | 2022-03-05 08:55 | HMH.ACPN2 ---
Internal Medicine - PN: Subj *Date: 03/05/22 *Time: 08:55 Interval history: Patient slept well. No complaints. Orthopedic note from this morning reviewed. Consult appreciated. Patient appreciated conversation with Ortho this morning. Exam Vital signs and Labs for Last 24 Hours: Temp Pulse Resp BP Pulse Ox 98.5 F 68 16 132/52 L 96 03/05/22 08:00 03/05/22 08:00 03/05/22 08:00 03/05/22 08:00 03/05/22 08:00 I & O for Last 24 hours: Intake & Output 03/02/22 03/03/22 03/04/22 03/05/22 11:59 11:59 11:59 11:59 Intake Total 360 / 360 360 / 360 1380 / 1380 Output Total 500 / 500 Balance -140 / -140 360 / 360 1380 / 1380 Weight 231 lb 7.766 oz 233 lb 2 oz 232 lb 6.4 oz Narrative: Alert, pleasant. Breathing easily. Abdomen soft. Extremity exam per Ortho. Vital signs reviewed. Neurologically intact. Assessment and Plan (1) Fracture of 5th metatarsal Status: Acute Qualifiers: Fracture type: closed Category: Medical Code(s): S92.353A - Displaced fracture of fifth metatarsal bone, unspecified foot, initial encounter for closed fracture (2) Class 2 obesity Status: Chronic Category: Medical Code(s): E66.9 - Obesity, unspecified (3) Foot fracture, left Status: Acute Qualifiers: Fracture type: closed Category: Medical Code(s): S92.902A - Unspecified fracture of left foot, initial encounter for closed fracture (4) Essential hypertension Status: Chronic Category: Medical Code(s): I10 - Essential (primary) hypertension (5) Depression Status: Chronic Category: Medical Code(s): F32.A - Depression, unspecified (6) IgA nephropathy Status: Chronic Category: Medical Code(s): N02.8 - Recurrent and persistent hematuria with other morphologic changes (7) CKD (chronic kidney disease) Status: Chronic Qualifiers: Chronic kidney disease stage: stage 3 (moderate) Chronic kidney disease stage 3 subtype: stage 3a (GFR 45-59) Qualified Code(s): N18.31 - Chronic kidney disease, stage 3a Category: Medical Code(s): N18.9 - Chronic kidney disease, unspecified - Assessment and plan all Dx Assessment and Plan for all problems:: Doing well postoperatively. Continue plan re: PT evaluation and possible skilled care transfer.
--- NOTE | 2022-03-05 09:52 | HMH.PTEV ---
Physical Therapy Evaluation Rehab PT IP Evaluation Start: 03/05/22 05:38 Freq: ONCE Status: Active Protocol: Document 03/05/22 09:47 JACKIE (Rec: 03/05/22 09:52 JACKIE [id number]) Subjective/History History History This is the initial IP PT evaluation for [place]. Pt is a very pleasant 67 y/o female who fell off her porch steps at home. She suffere B foot fractures from the fall. Pt had ORIF on L foot to fix lisfranc fx and is NWB on L. R foot has 5th met fx - pt is heel WBing on R w/ walking boot. Subjective Subjective Pt reports she lives alone in split level home Rehab PT IP Eval Objective Appearance Patient Behavior Appropriate,Cooperative Patient Orientation Place,Name,Birthday,Year, Situation Difficulty following instructions none Speech Pattern Clear,Appropriate Ambulation Patient Able to Ambulate No Ambulation Observation IP General Gait Pattern Observation Antalgic Gait,Decrease Weight Bear (R),Decrease Weight Bear (L) Ambulation Distance (feet) 1 Ambulation Assistive Device Standard Walker Ambulation Ability Maximum x 1 (75% assist) Balance Ability to Arise Able, uses arms to help Sitting Balance Steady, safe Standing Balance Steady, wide stance Dynamic Sitting Balance Ability Normal Dynamic Standing Balance Ability Poor Transfers Bed Transfer Ability Independent,Supervision/Stand by Sit to Stand Bed Transfer Ability Contact Guard/Hand Hold, Minimal x 1 (25% assist) Rehab PT IP prob,goals,plan Problems Date of Evaluation: 03/05/22 PT IP Problems Transfers,Gait,Balance,Self care,Safety Rehab Potential Rehab Potential Fair Equipment Needs Assistive Devices Standard Walker,Wheelchair Plan PT Intervention Plan Transfers,Gait,Balance,Self care,Safety,Therapeutic Exercise PT Plan Frequency BID Duration LOS Discharge Goals Bed Transfer Ability Independent Sit to Stand Chair Transfer Ability Contact Guard/Hand Hold Discharge Plan PT Discharge Plan Pt will need SNF placement s/p dc to allo
[2022-03-05 11:53] VITALS: BP 124/49; PULSE 63; RESP 16; TEMP 36.8; O2SAT 96
--- NOTE | 2022-03-05 15:50 | PC.NURSE ---
Patient c/o pain after taking Pike 5/325mg x 2 tabs with no relief after 1 hour. Provider notified and recvd v.o. from Dr. Uribe to d/c Pike and start Percocet 10mg every 4 hrs PRN.
[2022-03-05 16:00] VITALS: BP 114/55; PULSE 62; RESP 16; TEMP 36.8; O2SAT 95
--- NOTE | 2022-03-05 18:05 | PC.NURSE ---
Patient VSS, pain has improved with new pain medication orders. Has had multiple visitors at bedside. Shows no s/s of acute distress noted at this time, bed at lowest level for safety, call light within reach.
[2022-03-05 20:00] VITALS: BP 132/57; PULSE 66; RESP 16; TEMP 36.7
[2022-03-06 03:35] VITALS: BP 121/61; PULSE 66; RESP 16; TEMP 36.6; O2SAT 93
[2022-03-06 05:00] VITALS: BMI 37.9
--- NOTE | 2022-03-06 05:18 | PC.NURSE ---
Pt alert and oriented x 4. No acute changes since previous assessment. LLE in splint and dressing - c/d/i. Swelling and bruising noted to RLE.. BLE have good cap refill and warm to touch. Pt rested really well this shift. Pt c/o of pain once this shift. Medicated per MAR with favorable results. Pt remains on RA, tolerating well. No other needs or complaints voiced at this time. Call light in reach.
--- NOTE | 2022-03-06 06:34 | HMH.ORTHPN ---
Subjective Date: 03/06/22 Time: 06:34 Interval history: Pain tolerable, has been up to bedside commode, working with therapy. PN: Obj Ex Vital signs: Temp Pulse Resp BP Pulse Ox 98 F 66 16 121/61 93 L 03/06/22 03:35 03/06/22 03:35 03/06/22 03:35 03/06/22 03:35 03/06/22 03:35 - Constitutional no acute distress - Routine HEENT Exam Head: Present: normocephalic, atraumatic Eye: Present: EOMI ENT: Present: mucous membranes moist - Routine Neck Exam Present: supple - Routine Respiratory Exam Absent: respiratory distress - Routine Cardiovascular Exam Present: RRR - Detailed Lower Extremity Exam Lower leg: Left normal inspection (Left lower extremity splint clean, dry, intact. Toes warm and well-perfused. Grossly intact EHL, FHL.), Right swelling (Persistent swelling right foot, mild tenderness base of the fifth metatarsal. Palpable dorsalis pedis/posterior tibial pulse. Sensation intact to light touch deep peroneal, superficial peroneal, tibial, sural, saphenous nerve distribution. 4/5 motor function intact to extensor hallicus longus, flexor hallicus longus, tibialis anterior, gastroc/soleus, posterior tibialis, foot eversion.) Progress Note: A&P (1) Fracture of 5th metatarsal Status: Acute (2) Class 2 obesity Status: Chronic (3) Foot fracture, left Status: Acute (4) Essential hypertension Status: Chronic (5) Depression Status: Chronic (6) IgA nephropathy Status: Chronic (7) CKD (chronic kidney disease) Status: Chronic Assessment and Plan for All Diagnoses:: 67-year-old female status post left foot open reduction, acute arthrodesis first through third tarsometatarsal joints March 04, 2022. Right fifth metatarsal base fracture, right ankle sprain. Plan for continued nonoperative treatment right lower extremity. Plan for nonweightbearing left lower extremity. Plan for heel weightbearing for pivot right lower extremity in short boot. 23 hours antibiotics. PT/OT. Pain control. Anticipate she would likely benefit from rehab versus SNF placement pending PT/OT evaluation. Plan for follow-up in 2 weeks. Will follow.
[2022-03-06 08:00] VITALS: BP 140/73; PULSE 66; RESP 16; TEMP 37.4; O2SAT 93
--- NOTE | 2022-03-06 08:14 | HMH.ACPN2 ---
Internal Medicine - PN: Subj *Date: 03/06/22 *Time: 08:14 Interval history: Overall doing well. Mao was not really doing a great job for pain yesterday so we switched it to Percocet, 10 mg every 6 hours as needed and she reports this is much better. Orthopedics note reviewed. Exam Vital signs and Labs for Last 24 Hours: Temp Pulse Resp BP Pulse Ox 98 F 66 16 121/61 93 L 03/06/22 03:35 03/06/22 03:35 03/06/22 03:35 03/06/22 03:35 03/06/22 03:35 I & O for Last 24 hours: Intake & Output 03/03/22 03/04/22 03/05/22 03/06/22 11:59 11:59 11:59 11:59 Intake Total 360 / 360 360 / 360 1380 / 1380 1020 / 1020 Output Total 500 / 500 1700 / 1700 Balance -140 / -140 360 / 360 1380 / 1380 -680 / -680 Weight 231 lb 7.766 oz 233 lb 2 oz 232 lb 6.4 oz 230 lb 6.4 oz Narrative: Alert, pleasant. ENT exam clear. Cardiopulmonary assessment unremarkable, abdomen soft. Extremity exam per orthopedics. Neurologically intact. Assessment and Plan (1) Fracture of 5th metatarsal Status: Acute Qualifiers: Fracture type: closed Category: Medical Code(s): S92.353A - Displaced fracture of fifth metatarsal bone, unspecified foot, initial encounter for closed fracture (2) Class 2 obesity Status: Chronic Category: Medical Code(s): E66.9 - Obesity, unspecified (3) Foot fracture, left Status: Acute Qualifiers: Fracture type: closed Category: Medical Code(s): S92.902A - Unspecified fracture of left foot, initial encounter for closed fracture (4) Essential hypertension Status: Chronic Category: Medical Code(s): I10 - Essential (primary) hypertension (5) Depression Status: Chronic Category: Medical Code(s): F32.A - Depression, unspecified (6) IgA nephropathy Status: Chronic Category: Medical Code(s): N02.8 - Recurrent and persistent hematuria with other morphologic changes (7) CKD (chronic kidney disease) Status: Chronic Qualifiers: Chronic kidney disease stage: stage 3 (moderate) Chronic kidney disease stage 3 subtype: stage 3a (GFR 45-59) Qualified Code(s): N18.31 - Chronic kidney disease, stage 3a Category: Medical Code(s): N18.9 - Chronic kidney disease, unspecified - Assessment and plan all Dx Assessment and Plan for all problems:: No changes in plan. Await evaluation for transfer to skilled care.
--- NOTE | 2022-03-06 08:40 | PC.NURSE ---
PT / OT at bs to see if pt would like to get up to the chair. She is just now taking her pain medication and would like to wait.
[2022-03-06 09:25] VITALS: BP 116/56; PULSE 69; TEMP 36.6
--- NOTE | 2022-03-06 09:25 | HMH.ANESII ---
[facility] Anesthesia Record Part II Discharge Time: 14:08 Destination: Second Floor PACU nurse assessment reviewed?: Yes Patient Condition:: Good Anesthesia Complications:: None Swallowing reflex intact?: Yes Cyanosis?: No Blood Pressure: 116/56 Pulse Rate: 69 Temperature: 97.9 F Mental Status: Alert & Oriented Pain level:: 0 Nausea and/or vomitting:: None Intake, IV Amount: 0
--- NOTE | 2022-03-06 09:54 | HMH.OTEV ---
OT Inpatient Evaluation Rehab OT IP Evaluation Start: 03/05/22 05:40 Freq: ONCE Status: Complete Protocol: Document 03/06/22 09:48 HETALMARIO (Rec: 03/06/22 09:53 HETALMARIO [id number]) Rehab OT IP Assessment Subjective History 11395: Open treatment of tarsometatarsal joint dislocation including internal fixation, first TMT via medial incision 13412: Midtarsal arthrodesis, single joint, first TMT via medial incision 50748-73: Open treatment tarsometatarsal joint dislocation with internal fixation, second tarsometatarsal joint via lateral incision 40647-52: Open treatment tarsometatarsal joint dislocation with internal fixation, third tarsometatarsal joint via lateral incision 93341: Midtarsal arthrodesis, multiple/transverse, second and third tarsometatarsal joint via lateral incision C1762: V92 allogra 67-year-old female fell on her deck, complained of bilateral foot pain. She was initially seen in an outside emergency department, was discharged, could not walk the next day and was subsequently admitted directly from her primary care physicians office with concern for midfoot fractures. Subsequent CT and MRI demonstrated Lisfranc complex fracture of the left foot, minimally displaced fifth metatarsal base fracture. I had a discussion with her regarding both of these injuries. We discussed nonoperative and operative treatment of both. I counseled her that the distalmost aspect of the right fifth met
--- NOTE | 2022-03-06 12:32 | PC.NURSE ---
Pt sitting up in chair eating lunch. Medicated for pain with percocet (see mar).
--- NOTE | 2022-03-06 14:22 | PC.NURSE ---
rounded on patient. assisted with bedside commode. noted to have hard stools. requested a stool softener and order obtained and placed. no concerns or questions. patient IV was changed yesterday. understands treatment. plan for placement to [facility]. encouraged her to ring out as needed.
[2022-03-06 16:00] VITALS: BP 125/49; PULSE 72; RESP 16; TEMP 36.7; O2SAT 94
[2022-03-07 04:00] VITALS: BP 117/53; PULSE 69; RESP 17; TEMP 36.6; O2SAT 92
[2022-03-07 05:00] VITALS: BMI 41.1
--- NOTE | 2022-03-07 05:17 | PC.NURSE ---
Patient has been a&o x4. Patient has been medicated for pain x2 per MAR. Patient tolerating RA. Dressing to lt leg is CDI. VSS.
[2022-03-07 07:13] LABS: Basophils # 0.1 K/mm3 (0-0.2); Basophils % 0.7 % (0.1-2.0); Eosinophils # 0.4 K/mm3 (0.0-0.4); Eosinophils % 4.6 % (0.1-12.0); Hematocrit 35.2 % (37.0-47.0); Hemoglobin 10.5 g/dL (12.2-16.2); Lymphocytes # 1.8 K/mm3 (0.7-4.5); Lymphocytes % 20.3 % (10-50); Mean Corpuscular HGB Conc 29.7 g/dL (31.8-35.4); Mean Corpuscular Hemoglobin 29.3 pg (27.0-31.2); Mean Corpuscular Volume 98.7 fl (81-99); Monocytes # 0.8 K/mm3 (0.1-1.0); Monocytes % 9.3 % (1.7-9.3); Neutrophils # 5.9 K/mm3 (1.8-7.8); Platelet Count 289 K/mm3 (142-424); Red Blood Count 3.57 M/mm3 (4.20-5.40); White Blood Count 9.1 K/mm3 (4.8-10.8)
[2022-03-07 07:18] LABS: Coronavirus 19, PCR Not Detected (NotDetected); Influenza A, PCR Not Detected (NotDetected); Influenza B, PCR Not Detected (NotDetected)
[2022-03-07 07:24] LABS: Chloride 103 mmol/L (98-107); Potassium 4.2 mmoL/L (3.5-5.1); Sodium 136 mmol/L (136-145)
--- NOTE | 2022-03-07 07:25 | HMH.DCSUM ---
General - General Admission date:: 03/02/22 Discharge date: 03/07/22 HPI HPI: Ms. Fountain is a pleasant 67-year-old female who presents to the office today for follow-up from recent ER visit at [facility]. States on Sunday she was stepping off of her porch when she missed the last step. She stumbled, fell hard on her feet, right knee, and scratched her face. Immediately had onset of pain in her feet and felt a pop in the right foot in particular. EMS took her to the emergency room where she was worked up for injury to her feet. Imaging was obtained that at that time she was told showed concern for Lisfranc injury but no fractures. She was sent home with pain medication and no follow-up plan. She has had a significant difficulty walking since being home. Both feet have become more swollen, bruising on the bottoms of both feet. Right foot and ankle swollen. Having to walk on heels to ambulate to the bathroom. Significant dependence on her friend for ADLs. On exam today in the office, she was sent to [facility] again for repeat imaging given the tenderness on exam and swelling in her feet. Radiology called our office informing us that she had a fracture of her right fifth metatarsal. After consulting orthopedics as an outpatient, decision made to admit patient for further imaging, evaluation, and possible surgical intervention. Patient denies any other complaints. No upset stomach, nausea, vomiting, diarrhea, confusion, headache, chest pain or shortness of breath. Tramadol and adequately controlling her pain at home. Only on aspirin, instructed to hold at this time. No other blood thinners. Hospital Course Hospital Course: 67-year-old female who presented to outpatient clinic with bilateral foot pain. Injury sustained on Sunday. Initial imaging reported did not show fractures however ambulation for the past few days has been very difficult, extreme pain in bilateral feet with bearing weight. Using walker to ambulate on her heels as best she can. Unable to care for self, necessitating help from friends for ADLs. Repeat imaging shows fractures in both feet/mid feet. Admitted to [facility] for further management and orthopedics consulted. CTs obtained. Status post left foot open reduction. Acute arthrodesis first through third tarsometatarsal joints on March 04. Right fifth metatarsal base fracture and right ankle sprain, nonoperative management. Right fifth metatarsal fracture Left foot with multiple tarsal fractures. -Imaging showing significant fractures in both feet. Orthopedics was consulted. Surgical fixation of left foot fracture, see Ortho notes. Right foot conservatively managed. Patient doing well since surgery. Needs placement for rehab given nonweightbearing status on left foot and minimal weightbearing on the right while wearing boot. Unable to go home. Ortho Plan: Continued nonoperative treatment right lower extremity. Plan for nonweightbearing left lower extremity. Plan for heel weightbearing for pivot right lower extremity in short boot. 23 hours antibiotics. PT/OT. Pain control. Anticipate she would likely benefit from rehab versus SNF placement pending PT/OT evaluation. Plan for follow-up in 2 weeks. -Pain control with oxycodone as ordered. Continued home medications for chronic conditions including hypertension, mood disorder, allergies Chronic kidney disease stable. -Stable during admission, monitored Objective Vital signs: Temp Pulse Resp BP Pulse Ox 97.8 F 69 17 117/53 L 92 L 03/07/22 04:00 03/07/22 04:00 03/07/22 04:00 03/07/22 04:00 03/07/22 04:00 Narrative: - Constitutional no acute distress, obese - *Routine HEENT Exam Head: Present: normocephalic Eye: Present: EOMI, PERRL ENT: Present: mucous membranes moist - *Routine Neck Exam Present: supple. Absent: lymphadenopathy - *Routine Respiratory Exam Present: CTA bilaterally - *Rout
[2022-03-07 07:26] LABS: Alanine Aminotransferase 60 U/L (12-78); Aspartate Amino Transferase 113 U/L (14-36); Blood Urea Nitrogen 29 mg/dl (7-17); Creatinine Clearance Estimated 48 mL/min (50-200); Estimated Glomerular Filt Rate 55 ml/min (>60); GFR (African American) 67 ML/MIN (>60)
[2022-03-07 07:27] LABS: Albumin Level 3.3 g/dl (3.5-5.0); Albumin/Globulin Ratio 1.2 (1.1-1.8); Alkaline Phosphatase 293 U/L (38-126); Anion Gap 9.2 mEq/L (5-15); Bilirubin,Total 0.5 mg/dl (0.2-1.3); Carbon Dioxide 28 mmol/L (22.0-30.0); Globulin 2.8 g/dL (1.3-3.2); Glucose 94 mg/dl (74-100); Total Protein,Serum 6.1 g/dl (6.3-8.2)
[2022-03-07 08:00] VITALS: BP 112/52; PULSE 70; RESP 16; TEMP 36.6; O2SAT 95
--- NOTE | 2022-03-07 12:15 | PC.NURSE ---
Attempted to call report to [facility] but was told the receiving RN was on lunch to call back later.
--- NOTE | 2022-03-07 13:40 | PC.NURSE ---
report called to Evelin at [facility]
--- NOTE | 2022-03-07 13:47 | PC.NURSE ---
notified [facility] of need for transport, they stated to call back when we have a copy of the preauthorization form
--- NOTE | 2022-03-07 13:52 | PC.NURSE ---
Was notified by care management that preauthorization was not needed for ambulance transport, church warden notified ambulance;
--- NOTE | 2022-03-08 14:09 | CARE MANAGER ---
Contacted [facility] who states the patient is doing well and had only required one pain pill. Denies questions or concerns at this time. SINGH Fernandez
== END 2022-03-07 14:05 ==
PROVIDERS: Internal Medicine Adolescent Medicine; Orthopaedic Surgery; Admitting Provider Internal Medicine Adolescent Medicine; PCP Internal Medicine Adolescent Medicine; Visit Provider Internal Medicine Adolescent Medicine
PROC: (CPT 28615; principal; 2022-03-04 10:50)
DX: S92.312A Displaced fracture of first metatarsal bone, left foot, initial encounter for closed fracture (principal); S92.322A Displaced fracture of second metatarsal bone, left foot, initial encounter for closed fracture; S92.332A Displaced fracture of third metatarsal bone, left foot, initial encounter for closed fracture; S92.351A Displaced fracture of fifth metatarsal bone, right foot, initial encounter for closed fracture; I12.9 Hypertensive chronic kidney disease with stage 1 through stage 4 chronic kidney disease, or unspecified chronic kidney disease; N18.31 Chronic kidney disease, stage 3a; E78.5 Hyperlipidemia, unspecified; E66.9 Obesity, unspecified; F32.A Depression, unspecified; N02.8 Recurrent and persistent hematuria with other morphologic changes; W10.8XXA Fall (on) (from) other stairs and steps, initial encounter; Y92.018 Other place in single-family (private) house as the place of occurrence of the external cause; Z87.891 Personal history of nicotine dependence; Z79.899 Other long term (current) drug therapy; Z20.822 Contact with and (suspected) exposure to COVID-19; Z68.41 Body mass index [BMI] 40.0-44.9, adult
CPT/HCPCS: 28615; 28730; G0378; 36415; 73700; 73718; 76000; 80053; 83735; 85007; 85014; 85018; 85025; 85048; 85049; 97110; 97162; 97165; 97530; 97535; C1713; C1716; C1776; C9803; J2405; U0003; U0005

== ENCOUNTER → 2022-03-24 11:23 | Outpatient (CLI) | payer MEDICARE, SELFPAY ==
--- NOTE | 2022-03-24 11:27 | XR_ITS ---
FINAL REPORT CLINICAL HISTORY: foot fracture COMPARISON: MRI dated March 03, 2022 FINDINGS: RIGHT FOOT Three views of the right foot demonstrate a fracture of the proximal 5th metatarsal. There are mild degenerative changes. There is a plantar calcaneal spur. The visualized joint spaces are normally aligned. The soft tissues are unremarkable. IMPRESSION: 5th proximal metatarsal fracture. Reviewed, Interpreted and Dictated by Garry Gamez III, MD Transcribed by Amara Chavez Authenticated and [facility]
--- NOTE | 2022-03-24 11:27 | XR_ITS ---
FINAL REPORT CLINICAL HISTORY: foot fracture, s/p surgery 1mth ago COMPARISON: CT from March 02, 2022 FINDINGS: LEFT FOOT Three views of the left foot were obtained. A cast obscures some detail. There is no acute fracture or dislocation. There are postoperative changes in the midfoot with multiple screw plates and multiple screws present. The soft tissues are unremarkable. IMPRESSION: Postoperative changes with no acute bony abnormality. Reviewed, Interpreted and Dictated by Garry Gamez III, MD Transcribed by Amara Chavez Authenticated and . [facility]
== END ==
PROVIDERS: PCP Internal Medicine Adolescent Medicine; Visit Provider Orthopaedic Surgery
DX: S92.902D Unspecified fracture of left foot, subsequent encounter for fracture with routine healing; S92.351D Displaced fracture of fifth metatarsal bone, right foot, subsequent encounter for fracture with routine healing
CPT/HCPCS: 73630

== ENCOUNTER 2022-03-24 13:29 | Outpatient (RCR) | payer MEDICARE, SELFPAY | END 2022-03-24 14:30 | disposition home or self-care (01) | LOC: PT 13:29 | PROVIDERS: Visit Provider Orthopaedic Surgery | DX: S93.325A Dislocation of tarsometatarsal joint of left foot, initial encounter (principal); S92.354A Nondisplaced fracture of fifth metatarsal bone, right foot, initial encounter for closed fracture | CPT/HCPCS: 97760 ==

== ENCOUNTER → 2022-04-14 09:54 | Outpatient (CLI) | payer MEDICARE, SELFPAY ==
--- NOTE | 2022-04-14 10:03 | XR_ITS ---
FINAL REPORT CLINICAL HISTORY: right foot pain COMPARISON: 03/24/2022 FINDINGS: Right foot Three views were obtained. There is a mild transverse fracture of the 5th metatarsal base, similar to previous. No further displacement is identified. The joint spaces appear normal. No soft tissue abnormality is identified. IMPRESSION: Transverse fracture of the 5th metatarsal, similar to previous. Reviewed, Interpreted and Dictated by Nanci Evans MD Transcribed by Kylie Burnette Authenticated and [facility]
--- NOTE | 2022-04-14 10:03 | XR_ITS ---
FINAL REPORT CLINICAL HISTORY: left foot fx COMPARISON: 03/24/2022 FINDINGS: Left foot Three views were obtained. There are extensive postoperative changes of the medial midfoot. Moderate calcaneal spurring is identified. The joint spaces appear normal. No acute soft tissue abnormality is identified. IMPRESSION: Extensive postoperative changes. Reviewed, Interpreted and Dictated by Nanci Evans MD Transcribed by Kylie Burnette Authenticated and [facility]
== END ==
PROVIDERS: PCP Internal Medicine Adolescent Medicine; Visit Provider Orthopaedic Surgery
DX: S92.325A Nondisplaced fracture of second metatarsal bone, left foot, initial encounter for closed fracture; S92.351A Displaced fracture of fifth metatarsal bone, right foot, initial encounter for closed fracture
CPT/HCPCS: 73630

== ENCOUNTER 2022-04-14 11:15 | Outpatient (RCR) | payer MEDICARE, SELFPAY | END 2022-04-14 12:20 | disposition home or self-care (01) | LOC: PT 11:15 | PROVIDERS: Visit Provider Orthopaedic Surgery | DX: S93.325A Dislocation of tarsometatarsal joint of left foot, initial encounter; S92.351A Displaced fracture of fifth metatarsal bone, right foot, initial encounter for closed fracture | CPT/HCPCS: 97760 ==

== ENCOUNTER → 2022-04-28 13:42 | Outpatient (CLI) | payer MEDICARE, SELFPAY ==
--- NOTE | 2022-04-28 13:53 | XR_ITS ---
FINAL REPORT CLINICAL HISTORY: f/u foot fx COMPARISON: 03/24/2022 FINDINGS: Left foot Three views were obtained. There are postoperative changes in the midfoot with plates and multiple screws present, stable. The bony alignment is stable. There is forefoot soft tissue swelling. Calcaneal spurs are identified. IMPRESSION: Stable postoperative changes. Reviewed, Interpreted and Dictated by Garry Gamez III, MD Transcribed by Kylie Burnette Authenticated and . [facility]
--- NOTE | 2022-04-28 13:53 | XR_ITS ---
FINAL REPORT CLINICAL HISTORY: f/u foot fx COMPARISON: 04/14/2022 FINDINGS: Right foot Three views were obtained. There is a subacute nondisplaced fracture at the proximal 5th metatarsal, stable. There is a plantar calcaneal spur. IMPRESSION: Subacute fracture as above. Reviewed, Interpreted and Dictated by Garry Gamez III, MD Transcribed by Kylie Burnette Authenticated and [facility]
== END ==
PROVIDERS: PCP Internal Medicine Adolescent Medicine; Visit Provider Orthopaedic Surgery
DX: S92.323A Displaced fracture of second metatarsal bone, unspecified foot, initial encounter for closed fracture (principal)
CPT/HCPCS: 73630

== ENCOUNTER → 2022-06-15 13:54 | Outpatient (CLI) | payer MEDICARE, SELFPAY ==
--- NOTE | 2022-06-15 13:58 | XR_ITS ---
FINAL REPORT CLINICAL HISTORY: foot fracture COMPARISON: March 2022 FINDINGS: 3 views of the right foot were obtained. There is a moderate plantar spur. There is a persistent linear lucency through the base of the 5th metatarsal consistent with a healing fracture. The fracture line remains visible. IMPRESSION: Healing fracture of the base of 5th metatarsal. Reviewed, Interpreted and Dictated by Guillaume Boyer MD Transcribed by Kg Tamayo Authenticated and [facility]
--- NOTE | 2022-06-15 13:58 | XR_ITS ---
FINAL REPORT CLINICAL HISTORY: foot fracture COMPARISON: April 2022 FINDINGS: 3 views of the left foot were obtained. There is orthopedic card worse curing the 1st, 2nd, and 3rd tarsometatarsal joints. The previous soft tissue swelling over the dorsum of the foot has resolved. There is a moderate plantar spur. IMPRESSION: Stable postoperative change. Reviewed, Interpreted and Dictated by Guillaume Boyer MD Transcribed by Kg Tamayo Authenticated and . [facility]
== END ==
PROVIDERS: PCP Internal Medicine Adolescent Medicine; Visit Provider Orthopaedic Surgery
DX: S92.353A Displaced fracture of fifth metatarsal bone, unspecified foot, initial encounter for closed fracture (principal); S93.325D Dislocation of tarsometatarsal joint of left foot, subsequent encounter
CPT/HCPCS: 73630

== ENCOUNTER → 2022-07-14 10:08 | Outpatient (CLI) | payer MEDICARE, SELFPAY ==
--- NOTE | 2022-07-14 10:14 | XR_ITS ---
FINAL REPORT CLINICAL HISTORY: foot pain COMPARISON: June 15, 2022 FINDINGS: RIGHT FOOT Three views of the right foot were obtained. There is a stable linear lucency the of the proximal 5th metatarsal which may represent a subacute fracture. There are mild degenerative changes. There is a plantar calcaneal spur. The soft tissues are unremarkable. IMPRESSION: No acute bony abnormality. Stable linear lucency in the proximal 5th metatarsal may represent a subacute fracture. Reviewed, Interpreted and Dictated by Garry Gamez III, MD Transcribed by Amara Chavez Authenticated and . [facility]
--- NOTE | 2022-07-14 10:14 | XR_ITS ---
FINAL REPORT CLINICAL HISTORY: foot pain COMPARISON: June 15, 2022 FINDINGS: LEFT FOOT Three views of the left foot were obtained. There are stable appearing postoperative changes involving the midfoot and the proximal 1st, 2nd and 3rd metatarsals with screw plates and multiple screws present. There is a stable calcification near the medial navicular. There are calcaneal spurs. The joint spaces are preserved. The soft tissues are unremarkable. IMPRESSION: Stable exam. Reviewed, Interpreted and Dictated by Garry Gamez III, MD Transcribed by Amara Chvaez Authenticated and [facility]
== END ==
PROVIDERS: PCP Internal Medicine Adolescent Medicine; Visit Provider Orthopaedic Surgery
DX: M79.672 Pain in left foot (principal); M79.671 Pain in right foot
CPT/HCPCS: 73630

== ENCOUNTER → 2022-07-20 09:11 | Outpatient (CLI) | payer MEDICARE, SELFPAY ==
--- NOTE | 2022-07-20 09:11 | XR_ITS ---
FINAL REPORT TECHNIQUE: Bone densitometry calculations of the lumbar spine, right forearm and left hip were obtained. CLINICAL HISTORY: FX'S, POST MEOPAUSAL FINDINGS: DEXA BONE DENSITY AXIAL SKELETON Using L1-4, the bone mineral density of the spine is 1.163 g/cm2, corresponding to T-score of 1.1. Using the right forearm, the bone mineral density of the distal 1/3 is 0.692 g/cm2, corresponding to a T-score of 0.0. Using the left hip, the bone mineral density of the femoral neck is 0.665 g/cm2, corresponding to a T-score of -1.7. NOTE: T-score: Standard deviation compared with peak bone mass of young adult mean. *Following the recommendations of the International Society of Bone densitometry, classification of hip BMD is based on the lower of two T-scores; total hip or femoral neck. IMPRESSION: Normal bone mineral density of the lumbar spine and right forearm. Diminished bone mineral density of the left hip consistent with osteopenia. FRAX 10 year fracture risk is 1.8% for a hip fracture and 14% for a major osteoporotic fracture. Reviewed, Interpreted and Dictated by Nanci Evans MD Transcribed by Amara Chavez Authenticated and . [facility]
== END ==
PROVIDERS: PCP Internal Medicine Adolescent Medicine; Visit Provider Orthopaedic Surgery
DX: S92.354G Nondisplaced fracture of fifth metatarsal bone, right foot, subsequent encounter for fracture with delayed healing (principal); S92.902A Unspecified fracture of left foot, initial encounter for closed fracture; Z87.310 Personal history of (healed) osteoporosis fracture; Z78.0 Asymptomatic menopausal state
CPT/HCPCS: 77080

== ENCOUNTER → 2022-09-22 12:20 | Outpatient (CLI) | payer MEDICARE, SELFPAY ==
--- NOTE | 2022-09-22 12:23 | XR_ITS ---
FINAL REPORT CLINICAL HISTORY: foot fracture COMPARISON: 07/14/2022 FINDINGS: RIGHT FOOT 3 views of the right foot were obtained. There has been interval healing of the proximal 5th metatarsal fracture. No new fracture is identified. Mild degenerative changes are seen. There is a plantar calcaneal spur. Soft tissues are without acute abnormality. IMPRESSION: Interval healing of proximal 5th metatarsal fracture. Reviewed, Interpreted and Dictated by Garry Gamez III, MD Transcribed by Prabha Marin Authenticated and [facility]
--- NOTE | 2022-09-22 12:23 | XR_ITS ---
FINAL REPORT CLINICAL HISTORY: foot fracture COMPARISON: 07/14/2022 FINDINGS: LEFT FOOT Three views of the left foot demonstrate no acute fracture or dislocation. There are postoperative changes involving the midfoot as well as the proximal 1st, 2nd and 3rd metatarsals with screw plates and multiple screws present. No hardware complication is seen. Mild degenerative changes and plantar calcaneal spur are unchanged. Soft tissues are without acute abnormality. IMPRESSION: Stable postoperative changes without acute bony abnormality. Reviewed, Interpreted and Dictated by Garry Gamez III, MD Transcribed by Prabha Marin Authenticated and [facility]
== END ==
PROVIDERS: PCP Internal Medicine Adolescent Medicine; Visit Provider Orthopaedic Surgery
DX: S92.901A Unspecified fracture of right foot, initial encounter for closed fracture (principal); S92.902A Unspecified fracture of left foot, initial encounter for closed fracture
CPT/HCPCS: 73630

== ENCOUNTER → 2023-04-13 17:28 | Outpatient (CLI) | payer MEDICARE, SELFPAY ==
[2023-04-13 17:39] LABS: Adenovirus F 40/41, stool Not Detected (NotDetected); Astrovirus Not Detected (NotDetected); Campylobacter Not Detected (NotDetected); Clostridium Difficile A/B, PCR Not Detected (NotDetected); Cryptosporidium Not Detected (NotDetected); Cyclospora Cayetanesis Not Detected (NotDetected); Entamoeba histolytica Not Detected (NotDetected); Enteroaggregative E coli Not Detected (NotDetected); Enterotoxigenic E coli Not Detected (NotDetected); Giardia lamblia Not Detected (NotDetected); Norovirus Not Detected (NotDetected); Plesimonas Shigalloides, PCR Not Detected (NotDetected); Rotavirus A Not Detected (NotDetected); Salmonella, PCR Not Detected (NotDetected); Sapovirus Not Detected (NotDetected); Shiga-like toxin E coli Not Detected (NotDetected); Shigella Enterovasive E coli Not Detected (NotDetected); Vibrio Cholerae Not Detected (NotDetected); Vibrio, PCR Not Detected (NotDetected); Yersinia Entercolitica, PCR Not Detected (NotDetected)
[2023-04-14 10:03] LABS: Enteropathogenic E coli Detected (NotDetected)
== END ==
PROVIDERS: PCP Internal Medicine Adolescent Medicine; Visit Provider Nurse Practitioner Family
DX: A04.0 Enteropathogenic Escherichia coli infection; K52.89 Other specified noninfective gastroenteritis and colitis; R19.7 Diarrhea, unspecified; R10.9 Unspecified abdominal pain
CPT/HCPCS: 87507

== ENCOUNTER 2023-05-07 12:42 | Emergency (ER) | payer MEDICARE, SELFPAY ==
[2023-05-07] VITALS (8 sets, daily range): BP systolic 126–158; BP diastolic 75–95; PULSE 63–74; RESP 20; TEMP 36.7; O2SAT 96–98; BMI 37.5
--- NOTE | 2023-05-07 13:31 | CT_ITS ---
FINAL REPORT TECHNIQUE: After the administration of intravenous contrast, axial images were obtained through the abdomen and pelvis by computed tomography. This study was performed with technique to keep radiation doses as low as reasonably achievable, (ALARA). Individualized dose reduction techniques using automated exposure control or adjustment of the MA and/or KV according to the patient's size were employed. CLINICAL HISTORY: epigastric abd pain for months. History of PUD FINDINGS: Abdomen: The lung bases are clear. The liver is normal in size and attenuation. Patient is status postcholecystectomy. The spleen is unremarkable. The adrenals are normal. The pancreas is unremarkable. The kidneys enhance appropriately. There are renal cysts. The aorta is normal in caliber. There is no free fluid or adenopathy. There are postoperative changes at the rectosigmoid region. Fluid collection is seen in the right anterior pelvic wall, superficial to the rectus muscle measuring 13 x 12 x 6 cm, favored represent seroma or chronic hematoma. Abscess not excluded. Pelvis: The appendix is not identified. The urinary bladder is unremarkable. There is no free fluid or adenopathy. IMPRESSION: Fluid collection in the right anterior pelvic wall superficial to the rectus muscle which may represent seroma or chronic hematoma. Abscess not excluded. Reviewed, Interpreted and Dictated by Garry Gamez III, MD Transcribed by Prabha Marin Authenticated and [facility]
--- NOTE | 2023-05-07 13:35 | HMH.EDGENADL ---
Discharge Plan Disposition Patient Disposition: Home, Self-Care Chief Complaint: Abdominal Pain Prescriptions Prescriptions: New cefdinir 300 mg capsule 300 mg PO BID 7 Days Qty: 14 0RF No Action cephalexin 500 mg capsule 500 mg PO QID Qty: 20 0RF pantoprazole 40 mg tablet,delayed release (DR/EC) PO gabapentin 100 mg capsule 100 mg PO TID Qty: 90 2RF fluoxetine 40 MG capsule 80 mg PO DAILY verapamil 180 MG tablet extended release 180 mg PO AM simvastatin 40 MG tablet 40 mg PO DAILY montelukast 10 MG tablet 10 mg PO HS hydroxyzine HCl 25 MG tablet 25 - 50 mg PO HSP PRN (Reason: Sleep) allopurinol 300 MG tablet 150 mg PO DAILY omega-3 acid ethyl esters 1 GM capsule 2 gm PO BID docusate sodium 100 MG capsule 100 mg PO DAILY 0RF oxycodone-acetaminophen 1 EACH tablet 1 each PO Q6HP PRN (Reason: Severe Pain) 30 Days Qty: 120 0RF triamterene-hydrochlorothiazid 1 EACH tablet 1 each PO DAILY 0RF enoxaparin 40 MG/0.4 ML syringe 40 mg SQ BID 0RF Referrals Follow up/Referrals: Leeroy Uribe MD [Primary Care Provider] - See instructions Activity Restrictions/Add. Instructions Additional Instructions/Restrictions: At this time is felt you are safe to be discharged home. New or worsening symptoms please do not hesitate to return the emergency department. Please take medications as prescribed and continue to follow-up on an outpatient basis for possible upper endoscopy given your history of peptic ulcer disease. Clinical Impressions Clinical Impression: Abdominal pain, Acute UTI Instructions Patient Instructions: DI for Acute Abdominal Pain Discharge ED Provider: Baudilio Montes General Adult HPI <Luis Shah MD - Last Filed: 05/07/23 15:18> General Chief complaint: Abdominal Pain Stated complaint: STOMACH PAIN Time Seen by Provider: 05/07/23 12:48 Mode of Arrival: Ambulatory Source of Information: Patient Limitations: No Limitations Description of Symptoms (Recalled from ER Triage Doc. by RN): pt to ed c/o abd pain, nausea, and bloating. pt reports a significant hx of GI issues. pt states she is currently taking flagyl and cipro. History of Present Illness HPI narrative: 68-year-old female history of perforated diverticulitis status post colostomy and reversal, multiple abdominal hernia mesh repairs presenting with abdominal pain. Patient was diagnosed with E. coli diarrhea 1 month prior to arrival, since that time, has been on ciprofloxacin and Flagyl. Was also started on Pepcid recently. Patient states she has been having dry heaving, nausea without vomiting, normal stools for the past couple of days, but has been extremely gassy and having belching. Also having severe left upper quadrant abdominal pain that does not radiate. No fevers or chills, urinary symptoms, or any other concerns. Has not noticed anything that makes it better and has not been on any probiotics Related Data Home Medications Medication Instructions Recorded Confirmed allopurinol 300 mg tablet 150 mg PO DAILY GOUT 03/02/22 09/22/22 fluoxetine 40 mg capsule 80 mg PO DAILY Depression 03/02/22 09/22/22 hydroxyzine HCl 25 mg tablet 25 - 50 mg PO HSP PRN Sleep 03/02/22 09/22/22 montelukast 10 mg tablet 10 mg PO HS Allergy symptoms 03/02/22 09/22/22 omega-3 acid ethyl esters 1 gram 2 gm PO BID Cholesterol 03/02/22 09/22/22 capsule simvastatin 40 mg tablet 40 mg PO DAILY High cholesterol 03/02/22 09/22/22 verapamil 180 mg tablet,extended 180 mg PO AM Hypertension 03/02/22 09/22/22 release pantoprazole 40 mg tablet,delayed mg PO 09/22/22 09/22/22 release Previous Rx's Medication Instructions Recorded docusate sodium 100 mg capsule 100 mg PO DAILY 03/06/22 enoxaparin 40 mg/0.4 mL 40 mg (0.4 mL) SQ BID 03/07/22 subcutaneous syringe oxycodone-acetaminophen 10 mg-325 1 each PO Q6HP PRN Severe Pain 30 03/07/22 mg tablet days #120
[2023-05-07 14:48] LABS: Microscopic, Urine URINE MICROSCOPIC (MICROSCOPIC)
[2023-05-07 14:49] LABS: Bilirubin,Urine Negative (Negative); Blood, Urine TRACE-I (Negative); Glucose,Urine (UA) Negative (Negative); Ketones,Urine Negative (Negative); Leukocyte Esterase,Urine TRACE (Negative); Nitrate,Urine POSITIVE (Negative); PH,Urine 5.5 (5.0-8.5); Protein,Urine 2+ (Negative); Specific Gravity, Urine >= 1.030 (1.005-1.030); Urobilinogen,Urine 0.2 EU/dl (0.2)
[2023-05-07 14:50] LABS: Appearance,Urine Cloudy (Clear); Color,Urine Dark Yellow (Yellow)
[2023-05-07 14:53] LABS: Basophils # 0.1 K/mm3 (0-0.2); Basophils % 0.7 % (0.1-2.0); Eosinophils # 0.2 K/mm3 (0.0-0.4); Eosinophils % 2.6 % (0.1-12.0); Hematocrit 40.1 % (37.0-47.0); Hemoglobin 13.5 g/dL (12.2-16.2); Lymphocytes # 2.1 K/mm3 (0.7-4.5); Lymphocytes % 26.6 % (10-50); Mean Corpuscular HGB Conc 33.7 g/dL (31.8-35.4); Mean Corpuscular Hemoglobin 29.8 pg (27.0-31.2); Mean Corpuscular Volume 88.3 fl (81-99); Mean Platelet Volume 7.8 fl (7.4-10.4); Monocytes # 0.7 K/mm3 (0.1-1.0); Neutrophils # 4.8 K/mm3 (1.8-7.8); Neutrophils % 61.1 % (37.0-80.0); Platelet Count 312 K/mm3 (142-424); Red Blood Count 4.54 M/mm3 (4.20-5.40); Red Cell Distribution Width 14.6 % (11.5-17.5); White Blood Count 7.9 K/mm3 (4.8-10.8)
[2023-05-07 14:55] LABS: Chloride 105 mmol/L (98-107)
[2023-05-07 14:56] LABS: Potassium 4.1 mmoL/L (3.5-5.1); Sodium 140 mmol/L (136-145)
[2023-05-07 14:58] LABS: Alanine Aminotransferase 29 U/L (12-78); Alkaline Phosphatase 85 U/L (38-126); Anion Gap 10.1 mEq/L (5-15); Aspartate Amino Transferase 53 U/L (14-36); Bilirubin,Total 0.3 mg/dl (0.2-1.3); Blood Urea Nitrogen 14 mg/dl (7-17); Carbon Dioxide 29 mmol/L (22.0-30.0); Creatinine Clearance Estimated 86 mL/min (50-200); Estimated Glomerular Filt Rate 55 ml/min (>60); GFR (African American) 67 ML/MIN (>60); Lipase 22 U/L (23-300)
[2023-05-07 14:59] LABS: Albumin Level 4.2 g/dl (3.5-5.0); Albumin/Globulin Ratio 1.3 (1.1-1.8); Calcium 8.9 mg/dl (8.4-10.2); Globulin 3.2 g/dL (1.3-3.2); Glucose 90 mg/dl (74-100); Lactic Acid 1.7 mmol/L (0.7-2.1); Total Protein,Serum 7.4 g/dl (6.3-8.2)
[2023-05-07 15:10] LABS: WBC,Urine Occasional #/hpf (0-3)
[2023-05-07 15:11] LABS: Bacteria,Urine Trace /lpf
--- NOTE | 2023-05-07 16:50 | PC.NURSE ---
Rounded on pt. No needs voiced at this time. Call light within reach.
== END 2023-05-07 18:11 | disposition home or self-care (01) ==
PROVIDERS: Emergency Medicine; Emergency Provider Emergency Medicine; PCP Internal Medicine Adolescent Medicine
DX: R10.9 Unspecified abdominal pain (principal); N39.0 Urinary tract infection, site not specified
CPT/HCPCS: 74177; 80053; 81001; 83605; 83690; 85025; 96361; 96374; 96375; 99285; J0131; J0696; Q9967

== ENCOUNTER 2024-11-07 09:20 | Outpatient (CLI) | payer MEDICARE, SELFPAY ==
--- NOTE | 2024-11-07 09:23 | US_ITS ---
FINAL REPORT CLINICAL HISTORY: POST OP SEROMAINVOLVING DIGESTIVE SYSTEM FINDINGS: US ABDOMEN LIMITED Limited sonographic images of the mid abdomen were obtained at the region of a palpable abnormality. There is a large, complex, predominantly anechoic structure which corresponds to the clinical abnormality. This structure measures 16.7 x 5.2 cm and may be due to a seroma or chronic hematoma. Internal septations are noted. IMPRESSION: 16.7 cm structure corresponds to the clinical abnormality and may be due to a seroma or chronic hematoma. Reviewed, Interpreted and Dictated by Guillaume Boyer MD Transcribed by Melissa Rondon Authenticated and . [facility]
== END 2024-11-07 23:59 | disposition home or self-care (01) ==
LOC: RAD 09:21
PROVIDERS: PCP Internal Medicine Adolescent Medicine; Visit Provider Internal Medicine Adolescent Medicine
DX: K91.872 Postprocedural seroma of a digestive system organ or structure following a digestive system procedure (principal)
CPT/HCPCS: 76700